=== PATIENT | female | born 1995 | race Caucasian/White ===

== ENCOUNTER 2019-08-26 05:15 | Outpatient (CLI) | payer OTHER, SELFPAY ==
[2019-08-26 06:01] VITALS: BMI 36.6
--- NOTE | 2019-08-26 09:01 | OB.TRI.NOTE ---
History of Present Illness Date of Service: 08/26/19 Was patient seen by the physician?: No Reason For Visit: RULE OUT LABOR Date of Service: 08/26/19 Final PRANEETH: 09/08/19 Gestational age: 38 Weeks and 1 Days Allergies No Known Allergies Allergy (Verified 08/26/19 06:02) Physical Exam Cervix Dilation (cm): 4 NST - FHR Rate Baby A Baseline: 130 Variability:: Moderate Accelerations:: 15 x 15 Decelerations:: None NST Reactive:: Yes FHR Category:: Category I Uterine Activity:: q2-4 Impression/Plan 24yo @ 38.1 wks- Early labor Cervix unchanged- dc home nst reactive
== END 2019-08-26 07:45 | disposition home or self-care (01) ==
LOC: WPOUT 05:52 → WP 05:53
PROVIDERS: Visit Provider Obstetrics & Gynecology
DX: O60.03 Preterm labor without delivery, third trimester (principal); Z3A.38 38 weeks gestation of pregnancy
CPT/HCPCS: 59025; 59050; 99218; G0378

== ENCOUNTER 2019-08-26 11:50 | Inpatient (IN) | payer OTHER, SELFPAY ==
[2019-08-26 06:01] VITALS: BMI 36.6
[2019-08-26 12:38] VITALS: BMI 36.8
[2019-08-26 12:41] LABS: Absolute Lymphocyte Count 0.76 X10^3/uL (0.83-4.51); Absolute Neutrophil Count 15.2 X10^3/uL (2.0-7.7); Basophil# 0.03 X10^3/uL; Basophil% 0.2 % (0-1); Hematocrit 40.4 % (37-47); Hemoglobin 13.9 g/dL (12.0-15.0); Lymphocyte # 0.76 X10^3/ul (4.0); Lymphocyte % 4.6 % (19-41); Mean Corp Hgb Conc 34.4 g/dL (32-36); Mean Corpuscular Hgb 32.1 pg (27.0-32.0); Mean Corpuscular Volume 93.3 fL (81-99); Mean Platelet Vol. 10.3 fl (6.2-12.0); Monocyte# 0.39 X10^3/uL; Monocyte% 2.4 % (0-10); NRBC Flagged by Analyzer 0 % (0-5); Neutrophil % 92.3 % (47-70); Platelet Count 162 K/mm3 (150-450); RBC Distribution Width CV 12.7 % (11.6-14.6); RBC Distribution Width SD 43.2 fl (35.1-43.9); Red Blood Count 4.33 M/mm3 (4.2-5.4); White Blood Count 16.5 K/mm3 (4.4-11.0)
[2019-08-26] MEDS: Lactated Ringers 1,000 ML 50 ML IV (12:42)
[2019-08-26] MEDS: Lactated Ringers 500 ML 999 ML IV (12:42)
--- NOTE | 2019-08-26 14:06 | PCM.HP.OB ---
History Date of Admission: 08/26/19 Final PRANEETH: 09/08/19 Final PRANEETH Source: US <20 weeks Gestational age: 38 Weeks and 1 Days History of this : This is a 24 year-old, , at 38 weeks gestational age presents in active labor. Patient at time of admission was found to be 5/80/-2 with bulging membranes. Allergies No Known Allergies Allergy (Verified 08/26/19 06:02) Home Medications: Home Medications Vits [Prenatabs FA] 1 tab PO DAILY 08/26/19 Smoking Status: Never smoker Alcohol: None Number of Fetus(es): 1 History Past Pregnancies: Past Pregnancies Delivery Date Name GA/Weeks Outcome Route Weight Gender Labor Length Anesthesia Delivery Location Provider FOB Expected Infant Delivery Method: Spontaneous Vaginal Review of Systems Eyes: Denies: Blurred vision, Vision Change HEENT: Denies: Head Aches Cardiovascular: Denies: Chest Pain Gastrointestinal: Reports: Abdominal Pain - from ctx pain Physical Exam General: Alert, Oriented x3 Abdomen: Soft, Non Tender, Gravid Neurological: Cranial nerves II-XII grossly intact 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
--- NOTE | 2019-08-26 17:06 | PCM.PN.BLA ---
Progress Note called regarding FHR tracing- Deep Variables down to 65-70BPM. pt placed on Hands and Knees with resolution of variables- FHR now 150s Mod getachew. Will Continue to monitor- VE while in Hands and knees position- was approx 8cm. continue to monitor will start amnioinfusion if needed.
[2019-08-26] MEDS: Lactated Ringers 1,000 ML 200 ML IV (18:14)
[2019-08-26] MEDS: Oxytocin 30 units/NS 500 ml 30 UNITS/500 ML IV.SOLN 334 UNITS IV (19:35)
--- NOTE | 2019-08-26 19:57 | PCM.OPRPT ---
Vaginal Delivery Maternal Presentation: Active Labor Amniotic Membrane Rupture Type: Artificial Amniotic Fluid Description: Clear Final PRANEETH: 09/08/19 Final PRANEETH Source: US <20 weeks Gestational age: 38 Weeks and 1 Days Date of Procedure: 08/26/19 Pre-Operative Diagnosis: term gestation, active labor Post-Operative Diagnosis: live male Surgery/ Procedure Performed: Spontaneous Vaginal Delivery Type of Anesthesia: Epidural Description of Procedure: of live male born without complication. fetus with Prolonged deceleration to 60bpm during maternal pushing efforts- decision for RML episiotomy to expedite delivery. Infant placed on maternal chest and delayed cord clamping performed. Presentation: Vertex Placental Delivery Description: Spontaneous Placenta Disposition: [facility] Cord Vessel Description: 3 Vessels Cord Entanglement: None Drain: Molina to straight drain Estimated Blood Loss: 300 Infant A gender: Male (1 minute): 8 (5 minute): 9 Episiotomy Description: Right Mediolateral - repaired with 2-0 vicryl and 3-0 rapide, 2nd degree Laceration: Vaginal Extension/lac - repaired with 3-0 rapide, 1st degree Medications given after delivery: IV Pitocin Complications: None
[2019-08-26] MEDS: 0.9% Saline Lock 10 ML Syringe IV (22:14)
[2019-08-26 23:18] VITALS: BP 111/57; PULSE 97; RESP 18; TEMP 37.1
[2019-08-27 04:15] VITALS: BP 116/68; PULSE 89; RESP 16; TEMP 36.2
[2019-08-27 07:25] VITALS: BP 132/78; PULSE 82; RESP 16; TEMP 36.7; O2SAT 99
[2019-08-27] MEDS: Ibuprofen 600 MG Tablet PO ×3 (07:26→21:44)
--- NOTE | 2019-08-27 08:48 | PCM.PN.OB ---
Subjective: She is seen at bedside, doing well. Patient reports good pain control. Lochia is mild. Voiding without difficulty. Breast-feeding going well. - Physical Exam General: Alert, Oriented x3 Abdomen: Soft, Non Tender, Non-Distended, - - fundus firm Extremities: No Calf Tenderness Vital Signs Temp Pulse Resp BP Pulse Ox 98.1 F 82 16 132/78 H 99 08/27/19 07:25 08/27/19 07:25 08/27/19 07:25 08/27/19 07:25 08/27/19 07:25 Oxygen Delivery Method Room Air Weight: 94.347 kg Body Mass Index (BMI) 36.8 Intake and Output for Last 24 Hours 08/25/19 08/26/19 08/27/19 23:59 23:59 23:59 Intake Total 3563.76 / 3563.76 Output Total 1900 / 1900 900 / 900 Balance 1663.76 / 1663.76 -900 / -900 Laboratory Tests Past 24 Hrs 08/26/19 08/26/19 12:10 12:10 WBC 16.5 H RBC 4.33 Hgb 13.9 Hct 40.4 MCV 93.3 MCH 32.1 H MCHC 34.4 RDW Std Deviation 43.2 RDW Coeff of Lyssa 12.7 Plt Count 162 MPV 10.3 Immature Gran % (Auto) 0.500 Neut % (Auto) 92.3 H Lymph % (Auto) 4.6 L [place] % (Auto) 2.4 Eos % (Auto) 0.0 Baso % (Auto) 0.2 Absolute Neuts (auto) 15.2 H Absolute Lymphs (auto) 0.76 L Nucleated RBC % 0 Blood Type O POSITIVE Antibody Screen NEGATIVE Medical Necessity - Tobacco Use Smoking Status: Never smoker Assessment/Plan PPD#1, doing well routine care pain mgmt
[2019-08-27 12:06] VITALS: BP 114/74; PULSE 87; TEMP 36.1
[2019-08-27 15:32] VITALS: BP 121/69; PULSE 87; TEMP 36.2
[2019-08-27 19:45] VITALS: BP 120/63; PULSE 90; RESP 16; TEMP 36.5; O2SAT 97
[2019-08-27] MEDS: Senna/Docusate Sodium 1 Tablet PO (20:07)
[2019-08-28 01:32] VITALS: BP 117/54; PULSE 85; RESP 16; TEMP 36.3; O2SAT 96
[2019-08-28] MEDS: Ibuprofen 600 MG Tablet PO (05:52)
[2019-08-28] MEDS: Senna/Docusate Sodium 1 Tablet PO (08:41)
[2019-08-28 08:45] VITALS: BP 122/71; PULSE 80; RESP 20; TEMP 36.5; O2SAT 97
--- NOTE | 2019-08-28 08:50 | PCM.PN.OB ---
Subjective: Doing well per patient and nursing staff. Ambulating and taking PO without difficulty. Voiding and passing flatus. Denies chest pain, Shortness of breath, increased vaginal bleeding/clots, or leg pain. Pain controlled. without difficulty. Planning D/C home today. - Physical Exam General: Alert, Cooperative HEENT: Atraumatic, Normocephalic Neck: Trachea Midline Lungs: Clear to auscultation, Normal air movement Cardiovascular: Regular rate, Regular Rhythm, No murmurs Abdomen: Bowel Sounds Present, - - Fundus firm 2 below U Extremities: No edema Psych/Mental Status: Normal Affect, Appropriate Vital Signs Temp Pulse Resp BP Pulse Ox 97.4 F L 85 16 117/54 L 96 08/28/19 01:32 08/28/19 01:32 08/28/19 01:32 08/28/19 01:32 08/28/19 01:32 Oxygen Delivery Method Room Air Weight: 208 lb Body Mass Index (BMI) 36.8 Intake and Output for Last 24 Hours 08/26/19 08/27/19 08/28/19 23:59 23:59 23:59 Intake Total 3563.76 / 3563.76 Output Total 1900 / 1900 900 / 900 Balance 1663.76 / 1663.76 -900 / -900 Medical Necessity - Tobacco Use Smoking Status: Never smoker Assessment/Plan A:PPD #2 P: 1) Routine discharge instructions reviewed. 2) D/C home today. Follow up in 2 weeks and 6 weeks.
--- NOTE | 2019-08-28 08:55 | DCINST_ITS ---
Discharge Diet: No Restrictions Discharge Activity: Return to Normal Activity May resume sexual activity in: 4-6 weeks Weight Bearing Status: Full weight bearing Additional Activity Instructions:: Nothing in the vagina for 4-6 weeks. You may return to work/school in 6 weeks. Call your doctor if your incision/area has: Continuous Slow Oozing, Sudden Increased Bleeding, Increased Pain/ Swelling, Increased Redness, Foul Smelling Discharge Call your doctor if you observe: Coldness, Increased Pain, Inability to urinate, Inability to have a bowel movement, Using more than one pad per hour, Shortness of breath, Chest pain, Increased palpitations (irregular heartbeat), Calf discomfort Additional Instructions: If you experience any of the following, contact your healthcare provider. * Bleeding that soaks a pad every hour for 2 hours * Fever 100.4 or higher * Unrelieved incision or abdominal pain * Swelling, redness, discharge or bleeding from your incision or episiotomy site * Your incision begins to separate * Problems urinating (including inability to urinate or burning while urinating). * Visual changes * Severe headache * Flu-like symptoms * Pain or redness in one of both of your breasts * Pain, warmth, tenderness or swelling in your legs, especially the calf area * Frequent nausea and vomiting * Symptoms of depression or anxiety If you experience any of the following, call 911 or go to the nearest Emergency Room. * Chest pain * Problems breathing * Seizure activity * Partial or complete paralysis of a body part, slurred speech, weakness or drooping of the face, or a sudden inability to walk or hold your balance Allergies/Adverse Reactions: Allergies No Known Allergies Allergy (Verified 08/26/19 06:02) Medications to take at Discharge Vits [Prenatabs FA ] 1 tab PO DAILY 08/26/19 Ibuprofen [Motrin] 600 mg PO Q6H PRN PRN #30 tab 08/28/19 The following prescriptions were given: Ibuprofen [Motrin] 600 mg PO Q6H PRN PRN #30 tab PRN Reason: Pain Score 1-3/10 Transmission Status: Pending to [facility]/pharmacy #[id number] Please Follow Up With: Jana Ashley MD When: Call to make an appointment with your doctor in 2 weeks and 6 weeks. Primary Care Physician: Dusty Barrera [Primary Care Provider] - Test Results: Test results from this visit will be discussed in further detail at your follow- up appointment, if applicable.
== END 2019-08-28 12:00 | disposition home or self-care (01) | DRG 807 ==
PROVIDERS: Admitting Provider Obstetrics & Gynecology; Visit Provider Obstetrics & Gynecology
DX: O76 Abnormality in fetal heart rate and rhythm complicating labor and delivery (principal); Z37.0 Single live birth; O70.0 First degree perineal laceration during delivery; Z3A.38 38 weeks gestation of pregnancy
CPT/HCPCS: 59025; 59050; 85025; 86850; 86900; 86901; 99218; J7120; A4216; G0378

== ENCOUNTER → 2019-11-14 08:34 | Outpatient (CLI) | payer OTHER, SELFPAY | PROVIDERS: Visit Provider Obstetrics & Gynecology | DX: O92.79 Other disorders of lactation (principal); N64.4 Mastodynia | CPT/HCPCS: 96152 ==

== ENCOUNTER → 2019-11-26 15:15 | Outpatient (CLI) | payer OTHER, SELFPAY | PROVIDERS: Referring Provider Obstetrics & Gynecology; Visit Provider Obstetrics & Gynecology | DX: Z39.1 Encounter for care and examination of lactating mother (principal) | CPT/HCPCS: 96152 ==

== ENCOUNTER → 2020-12-23 09:05 | Outpatient (CLI) | payer OTHER, SELFPAY | PROVIDERS: Referring Provider Obstetrics & Gynecology; Visit Provider Obstetrics & Gynecology | DX: Z03.818 Encounter for observation for suspected exposure to other biological agents ruled out (principal) | CPT/HCPCS: 87635; C9803; U0005; U0003 ==

== ENCOUNTER 2020-12-26 07:05 | Inpatient (IN) | payer OTHER, SELFPAY ==
--- NOTE | 2020-12-24 18:16 | PCM.HP.OB ---
History Date of Admission: 12/26/20 Final PRANEETH: 01/01/21 Final PRANEETH Source: US <20 weeks Gestational age: 39 Weeks and 1 Days History of this : This is a 25 year-old, @ 39.1 weeks- here for scheduled IOL for moderate idiopathic polyhydramnios. Medical History: Medical History (Last Updated 12/24/20 @ 18:[address] Jana Ashley MD) Polyhydramnios affecting in third trimester O40.3XX0 Allergies No Known Allergies Allergy (Verified 08/26/19 06:02) Home Medications: Home Medications Vits [Prenatabs FA ] 1 tab PO DAILY 08/26/19 Sertraline HCl [Zoloft] 50 mg PO DAILY 12/26/20 Smoking Status: Never smoker Alcohol: None Number of Fetus(es): 1 History Past Pregnancies: Past Pregnancies Delivery Date Name GA/ Weeks Outcome Route Wt Sex Labor Length Anesthesia Delivery Location Provider FOB Expected Delivery Method: Spontaneous Vaginal Describe any other labor & delivery plans:: Labor induction with Pitocin and AROM Physical Exam General: Alert, Oriented x3 Abdomen: Soft, Non Tender, - - gravid Neurological: Cranial nerves II-XII grossly intact [employer] MECH[employer]IC: Normal external genitalia Estimated gestational size: Appropriate for gestational size Presentation: Cephalic Cervix Dilation (cm): 4 - VERTEX on Ultrasound today Station: -3 Effacement (%): 60 Assessment/Plan This is a 25 year-old, @ 39.1 weeks here for iOL due to moderate polyhydramnios 1) admit to L&D 2) monitor fhr/toco 3) anticipate 4) pit/arom 5) epidural for pain mgmt 6) vertex confirmed on ultrasound
[2020-12-26] VITALS (44 sets, daily range): BP systolic 103–186; BP diastolic 40–105; PULSE 82–143; RESP 16; TEMP 36.2–37.2; O2SAT 82–100; BMI 40.4
[2020-12-26] MEDS: Lactated Ringers 1,000 ML 50 ML IV (07:53)
[2020-12-26 08:12] LABS: Absolute Lymphocyte Count 1.81 X10^3/uL (0.83-4.51); Absolute Neutrophil Count 8.4 X10^3/uL (2.0-7.7); Basophil# 0.03 X10^3/uL; Basophil% 0.3 % (0-1); Eosinophil# 0.07 X10^3/uL; Eosinophils% 0.6 % (0-5); Hematocrit 39.7 % (37-47); Hemoglobin 13.6 g/dL (12.0-15.0); Lymphocyte # 1.81 X10^3/ul (4.0); Lymphocyte % 16.5 % (19-41); Mean Corp Hgb Conc 34.3 g/dL (32-36); Mean Corpuscular Hgb 31.3 pg (27.0-32.0); Mean Corpuscular Volume 91.3 fL (81-99); Mean Platelet Vol. 10.2 fl (6.2-12.0); Monocyte# 0.61 X10^3/uL; Monocyte% 5.5 % (0-10); NRBC Flagged by Analyzer 0 % (0-5); Neutrophil % 76.4 % (47-70); Platelet Count 186 K/mm3 (150-450); RBC Distribution Width CV 13.4 % (11.6-14.6); Red Blood Count 4.35 M/mm3 (4.2-5.4)
[2020-12-26] MEDS: Oxytocin 30 units/NS 500 ml 30 UNITS/500 ML IV.SOLN IV (08:35)
[2020-12-26] MEDS: Lactated Ringers 500 ML 999 ML IV (11:53)
[2020-12-26] MEDS: fentaNYL-bupivacaine (epidural) 100 ML BAG EPIDURAL (12:53)
[2020-12-26] MEDS: Oxytocin 30 units/NS 500 ml 30 UNITS/500 ML IV.SOLN 334 UNITS IV (15:44)
--- NOTE | 2020-12-26 15:51 | PCM.OPRPT ---
Vaginal Delivery Maternal Presentation: Medically Indicated Induction Method of Induction: Pitocin, Amniotomy Medical Reason for Induction: - - polyhydramnios Amniotic Membrane Rupture Type: Artificial Amniotic Fluid Description: Clear Final PRANEETH: 01/01/21 Final PRANEETH Source: US <20 weeks Gestational age: 39 Weeks and 1 Days Date of Procedure: 12/26/20 - 1540 Pre-Operative Diagnosis: term gestation, moderate polyhydramnios Post-Operative Diagnosis: same, live male infant Surgery/ Procedure Performed: Spontaneous Vaginal Delivery Type of Anesthesia: Epidural Description of Procedure: of live male born without complications. head delivered with good maternal pushing efforts shoulders delivered with gentle downward traction followed by the rest of the 's body. Center was then delivered in tact without complication. The was on the mother's chest for immediate skin the skin. Delayed cord clamping performed. First-degree perineal laceration repaired with a 2-0 Vicryl. Presentation: Vertex Placental Delivery Description: Spontaneous Placenta Disposition: [facility] Cord Vessel Description: 3 Vessels Cord Entanglement: None Drain: Molina to straight drain Estimated Blood Loss: 150 Infant A gender: Male (1 minute): 8 (5 minute): 9 Episiotomy Description: None Laceration: Perineal Extension/lac, 1st degree - repaired with 2-0 vicryl Medications given after delivery: IV Pitocin Complications: None
[2020-12-26] MEDS: Methylergonovine 0.2 MG/ML Ampul IM (16:57)
[2020-12-26] MEDS: 0.9% Saline Lock 10 ML Syringe IV (18:34)
[2020-12-27 04:24] VITALS: BP 117/72; PULSE 89; RESP 16; TEMP 36.3
[2020-12-27] MEDS: Ibuprofen 600 MG Tablet PO ×3 (04:27→21:50)
[2020-12-27 08:00] VITALS: BP 131/71; PULSE 68; RESP 16; TEMP 36.8
--- NOTE | 2020-12-27 09:09 | PCM.PN.OB ---
Subjective: No complaints - Physical Exam Vitals/I&O's: Vital Signs Temp Pulse Resp BP Pulse Ox 97.4 F L 89 16 117/72 96 12/27/20 04:24 12/27/20 04:24 12/27/20 04:24 12/27/20 04:24 12/26/20 19:13 Oxygen Delivery Method Room Air Weight: 224 lb 9.6 oz Body Mass Index (BMI) 40.4 Intake and Output for Last 24 Hours 12/25/20 12/26/20 12/27/20 23:59 23:59 23:59 Intake Total 2672.57 / 2672.57 Output Total 1600 / 1600 Balance 1072.57 / 1072.57 General: Alert, Oriented x3 Abdomen: Soft, Non Tender, Non-Distended - ff mid & below umb Extremities: No Calf Tenderness Laboratory Results 12/26/20 07:53: Blood Type O POSITIVE, Antibody Screen NEGATIVE Current Medications Acetaminophen (Acetaminophen 500 Mg Tablet) 1,000 mg PO Q8H PRN PRN PRN Reason: Pain Score 1-3 Bisacodyl (Bisacodyl 10 Mg Suppository) 10 mg RECTAL UD PRN PRN Reason: If no BM Dibucaine (Dibucaine 30 Gm Tube) 1 applic TOPICAL TID PRN PRN; Protocol PRN Reason: Discomfort Hydrocortisone (Hydrocortisone 2.5% Crm) 1 applic TOPICAL TID PRN PRN; Protocol PRN Reason: Discomfort Ibuprofen (Ibuprofen 600 Mg Tablet) 600 mg PO Q6H PRN PRN PRN Reason: Pain Score 1-3 Last Admin: 12/27/20 04:27 Dose: 600 mg Documented by: Methylergonovine Maleate (Methylergonovine 0.2 Mg/Ml Ampul) 0.2 mg IM X1 PRN PRN Reason: Excess bleeding/uterine atony Last Admin: 12/26/20 16:57 Dose: 0.2 mg Documented by: Ondansetron HCl (Ondansetron 4 Mg/2 Ml Vial) 4 mg IV Q4H PRN PRN PRN Reason: Nausea Oxycodone HCl (Oxycodone 5 Mg Tablet) 5 - 10 mg PO Q4H PRN PRN PRN Reason: Pain Score 4-10 Senna/Docusate Sodium (Senna/Docusate Sodium 1 Tablet) 1 - 2 tablet PO DAILY PRN PRN PRN Reason: Constipation Sertraline HCl (Sertraline 50 Mg Tablet) 50 mg PO DAILY PRASHANT Simethicone (Simethicone 80 Mg Tablet) 80 mg PO PCHS PRN PRN Reason: Indigestion/Stomach pain Sodium Chloride (0.9% Saline Lock 10 Ml Syringe) 5 - 15 ml IV UD PRN PRN Reason: SALINE FLUSH Last Admin: 12/26/20 18:34 Dose: 10 ml Documented by: Medical Necessity - Tobacco Use Smoking Status: Never smoker Assessment/Plan PPD#1 Routine care Possible d/c home later today
[2020-12-27 13:48] VITALS: BP 118/62; PULSE 76; RESP 16; TEMP 36.7
[2020-12-27] MEDS: Senna/Docusate Sodium 1 Tablet PO (13:58)
--- NOTE | 2020-12-27 14:50 | CASEMGMT ---
Social Work note: NATALIA met with patient and father of the baby. Introduced self and role at [facility] and reason for consult. Patient was sitting up in bed holding baby. Father of baby was in room doing various things. Patient was very upbeat and cheery. She was more than willing to talk with Social Work. Patient shared with Social Work that with her last baby she had a hard time with breast feeding. She feels this consumed her and got her so upset that she feels that was a big part of the problem. She is going to bottle feed this baby and is happy and confident with this decision. Her OB started her on Zoloft part way through this . She feels this has helped tremendously as does her . She denies any concerns with going home at discharge. Father of the baby took a month off to be at home with patient and babies. NATALIA let them know NATAILA Orr will bring resources by before she leaves. NATALIA updated RN. Plan: d/c home with baby. Jaylin JARA MSW
[2020-12-27 16:30] VITALS: BP 116/69; PULSE 88; RESP 16; TEMP 36.8
[2020-12-27 19:59] VITALS: BP 123/79; PULSE 96; RESP 16; TEMP 36.4
[2020-12-28 01:41] VITALS: BP 119/86; PULSE 92; RESP 16; TEMP 36.3
[2020-12-28] MEDS: Ibuprofen 600 MG Tablet PO (04:32)
[2020-12-28 08:30] VITALS: BP 100/61; PULSE 83; RESP 18; TEMP 36.7; O2SAT 97
--- NOTE | 2020-12-28 11:10 | DCINST_ITS ---
Discharge Diet: No Restrictions Discharge Activity: May Drive, May Shower May resume sexual activity in: 6 weeks Additional Instructions: If you experience any of the following, contact your healthcare provider. * Bleeding that soaks a pad every hour for 2 hours * Fever 100.4 or higher * Unrelieved incision or abdominal pain * Swelling, redness, discharge or bleeding from your incision or episiotomy site * Your incision begins to separate * Problems urinating (including inability to urinate or burning while urinating). * Visual changes * Severe headache * Flu-like symptoms * Pain or redness in one of both of your breasts * Pain, warmth, tenderness or swelling in your legs, especially the calf area * Frequent nausea and vomiting * Symptoms of depression or anxiety If you experience any of the following, call 911 or go to the nearest Emergency Room. * Chest pain * Problems breathing * Seizure activity * Partial or complete paralysis of a body part, slurred speech, weakness or drooping of the face, or a sudden inability to walk or hold your balance Allergies/Adverse Reactions: Allergies No Known Allergies Allergy (Verified 12/26/20 07:31) Medications to take at Discharge Vits [Prenatabs FA ] 1 tab PO DAILY 08/26/19 Sertraline HCl [Zoloft] 50 mg PO DAILY 12/26/20 Acetaminophen [Tylenol] 1,000 mg PO Q8H PRN PRN tab 12/27/20 Ibuprofen [Motrin] 600 mg PO Q6H PRN PRN tab 12/27/20 Primary Care Physician: Philip Barrera MD [Primary Care Provider] - Test Results: Test results from this visit will be discussed in further detail at your follow- up appointment, if applicable.
--- NOTE | 2020-12-28 11:10 | PCM.DCVAG ---
Discharge Diet: No Restrictions Discharge Activity: May Drive, May Shower May resume sexual activity in: 6 weeks Additional Instructions: If you experience any of the following, contact your healthcare provider. Bleeding that soaks a pad every hour for 2 hours Fever 100.4 or higher Unrelieved incision or abdominal pain Swelling, redness, discharge or bleeding from your incision or episiotomy site Your incision begins to separate Problems urinating (including inability to urinate or burning while urinating). Visual changes Severe headache Flu-like symptoms Pain or redness in one of both of your breasts Pain, warmth, tenderness or swelling in your legs, especially the calf area Frequent nausea and vomiting Symptoms of depression or anxiety If you experience any of the following, call 911 or go to the nearest Emergency Room. Chest pain Problems breathing Seizure activity Partial or complete paralysis of a body part, slurred speech, weakness or drooping of the face, or a sudden inability to walk or hold your balance Allergies/Adverse Reactions: Allergies No Known Allergies Allergy (Verified 12/26/20 07:31) Medications to take at Discharge Vits [Prenatabs FA ] 1 tab PO DAILY 08/26/19 Sertraline HCl [Zoloft] 50 mg PO DAILY 12/26/20 Acetaminophen [Tylenol] 1,000 mg PO Q8H PRN PRN tab 12/27/20 Ibuprofen [Motrin] 600 mg PO Q6H PRN PRN tab 12/27/20 Primary Care Physician: Philip Barrera MD [Primary Care Provider] - Test Results: Test results from this visit will be discussed in further detail at your follow-up appointment, if applicable.
--- NOTE | 2020-12-28 11:11 | PCM.PN.OB ---
Subjective: No complaints - Physical Exam Vitals/I&O's: Vital Signs Temp Pulse Resp BP Pulse Ox 98.1 F 83 18 100/61 97 12/28/20 08:30 12/28/20 08:30 12/28/20 08:30 12/28/20 08:30 12/28/20 08:30 Oxygen Delivery Method Room Air Weight: 224 lb 9.6 oz Body Mass Index (BMI) 40.4 Intake and Output for Last 24 Hours 12/26/20 12/27/20 12/28/20 23:59 23:59 23:59 Intake Total 2672.57 / 2672.57 Output Total 1600 / 1600 Balance 1072.57 / 1072.57 General: Alert, Oriented x3 Abdomen: Soft, Non Tender, Non-Distended - ff mid & below umb Extremities: No Calf Tenderness Current Medications Acetaminophen (Acetaminophen 500 Mg Tablet) 1,000 mg PO Q8H PRN PRN PRN Reason: Pain Score 1-3 Bisacodyl (Bisacodyl 10 Mg Suppository) 10 mg RECTAL UD PRN PRN Reason: If no BM Dibucaine (Dibucaine 30 Gm Tube) 1 applic TOPICAL TID PRN PRN; Protocol PRN Reason: Discomfort Hydrocortisone (Hydrocortisone 2.5% Crm) 1 applic TOPICAL TID PRN PRN; Protocol PRN Reason: Discomfort Ibuprofen (Ibuprofen 600 Mg Tablet) 600 mg PO Q6H PRN PRN PRN Reason: Pain Score 1-3 Last Admin: 12/28/20 04:32 Dose: 600 mg Documented by: Methylergonovine Maleate (Methylergonovine 0.2 Mg/Ml Ampul) 0.2 mg IM X1 PRN PRN Reason: Excess bleeding/uterine atony Last Admin: 12/26/20 16:57 Dose: 0.2 mg Documented by: Ondansetron HCl (Ondansetron 4 Mg/2 Ml Vial) 4 mg IV Q4H PRN PRN PRN Reason: Nausea Oxycodone HCl (Oxycodone 5 Mg Tablet) 5 - 10 mg PO Q4H PRN PRN PRN Reason: Pain Score 4-10 Senna/Docusate Sodium (Senna/Docusate Sodium 1 Tablet) 1 - 2 tablet PO DAILY PRN PRN PRN Reason: Constipation Last Admin: 12/27/20 13:58 Dose: 2 tablet Documented by: Sertraline HCl (Sertraline 50 Mg Tablet) 50 mg PO DAILY PRASHANT Last Admin: 12/28/20 10:18 Dose: Not Given Documented by: Simethicone (Simethicone 80 Mg Tablet) 80 mg PO PCHS PRN PRN Reason: Indigestion/Stomach pain Sodium Chloride (0.9% Saline Lock 10 Ml Syringe) 5 - 15 ml IV UD PRN PRN Reason: SALINE FLUSH Last Admin: 12/26/20 18:34 Dose: 10 ml Documented by: Medical Necessity - Tobacco Use Smoking Status: Never smoker Assessment/Plan PPD#2 D/c home
== END 2020-12-28 11:40 | disposition home or self-care (01) | DRG 807 ==
PROVIDERS: Admitting Provider Obstetrics & Gynecology; Visit Provider Obstetrics & Gynecology
DX: O40.3XX0 Polyhydramnios, third trimester, not applicable or unspecified (principal); Z37.0 Single live birth; Z3A.39 39 weeks gestation of pregnancy; O70.0 First degree perineal laceration during delivery
CPT/HCPCS: 59025; 59050; 85025; 86850; 86900; 86901; 99218; J7120; A4216; G0378

== ENCOUNTER 2023-05-07 06:48 | Inpatient (IN) | payer BC, SELFPAY ==
[2023-05-07] VITALS (73 sets, daily range): BP systolic 88–183; BP diastolic 50–105; PULSE 32–105; RESP 16; TEMP 36.1–37; O2SAT 80–100; BMI 41.8
[2023-05-07] MEDS: Lactated Ringers 1,000 ML 50 ML IV (07:00)
[2023-05-07 07:10] LABS: Absolute Lymphocyte Count 1.35 X10^3/uL (0.83-4.51); Absolute Neutrophil Count 7.7 X10^3/uL (2.0-7.7); Basophil# 0.04 X10^3/uL; Basophil% 0.4 % (0-1); Eosinophil# 0.07 X10^3/uL; Eosinophils% 0.7 % (0-5); Hematocrit 39.9 % (37-47); Hemoglobin 13.2 g/dL (12.0-15.0); Lymphocyte # 1.35 X10^3/ul (0.83-4.51); Lymphocyte % 13.7 % (19-41); Mean Corp Hgb Conc 33.1 g/dL (32-36); Mean Corpuscular Hgb 30.5 pg (27.0-32.0); Mean Corpuscular Volume 92.1 fL (81-99); Mean Platelet Vol. 11.6 fl (6.2-12.0); Monocyte# 0.59 X10^3/uL; NRBC Flagged by Analyzer 0 % (0-5); Neutrophil # 7.72 X10^3/uL (2.7-7.7); Neutrophil % 78.7 % (47-70); Platelet Count 142 K/mm3 (150-450); RBC Distribution Width CV 13.4 % (11.6-14.6); RBC Distribution Width SD 45.5 fl (35.1-43.9); Red Blood Count 4.33 M/mm3 (4.2-5.4); White Blood Count 9.8 K/mm3 (4.4-11.0)
[2023-05-07] MEDS: Labetalol (Prefilled) 20 MG/4 ML IV (07:10)
--- NOTE | 2023-05-07 07:13 | HP.PCM.OB_ITS ---
HPI - General General Date of Admission: 05/07/23 Date of Service: 05/07/23 HPI Narrative YARELIS ZUNIGA, is a 28 F @ 38.6 weeks who presents c/o CTX, found to be 5cm/70/-2 SROM on exam clear fluid, had severe range BPs on exam, asymptomatic- denies CORTEZ, visual change or Epigastric pain. [facility] Medical History (Updated 05/07/23 @ 07:[address] Jana Ashley MD) Polyhydramnios affecting in third trimester Home Medications vits,calcium no.78-iron fumarate-folic acid 29 mg-1 mg tablet 1 tab PO DAILY 08/26/19 [History Last Taken 05/06/23] sertraline 50 mg tablet 50 mg PO DAILY Check with primary doctor 12/26/20 [History Last Taken 12/25/20 21:00] Allergy/AdvReac Type Severity Reaction Status Date / Time No Known Allergies Allergy Verified 05/07/23 06:53 Social History Smoking Status: Never smoker History Elective abortions Hx Para 2 Spontaneous abortions Hx # Term Pregnancies Ectopic pregnancies Hx # Pregnancies Multiple births # of living children NST FHR Rate Baby A Baseline: 135 Variability:: Moderate Accelerations:: 15 x 15 Decelerations:: None NST Reactive:: Yes FHR Category:: Category I Uterine Activity:: q2-3 Vital Signs Vital Signs Vital Signs: 05/07/23 06:23 05/07/23 06:23 05/07/23 06:32 Temperature Temperature Source Temporal Pulse Rate 91 Blood Pressure BP Systolic BP Diastolic Pulse Ox 98 05/07/23 06:32 05/07/23 06:32 05/07/23 06:35 Temperature 97.9 F Temperature Source Pulse Rate Blood Pressure 168/85 H BP Systolic 168 BP Diastolic 85 Pulse Ox 98 05/07/23 06:35 05/07/23 06:56 05/07/23 06:56 Temperature Temperature Source Pulse Rate 83 98 Blood Pressure 171/85 H BP Systolic 171 BP Diastolic 85 Pulse Ox 05/07/23 07:09 05/07/23 07:09 05/07/23 07:11 Temperature Temperature Source Pulse Rate 95 Blood Pressure 183/105 H BP Systolic 183 BP Diastolic 105 Pulse Ox 99 05/07/23 07:11 Temperature Temperature Source Pulse Rate 90 Blood Pressure BP Systolic BP Diastolic Pulse Ox Weight Weight: 107.411 kg Physical Exam Narrative VE: 5/70/-2 during ctx SROM, clear VERTEX Const alert and oriented x3 General Appearance: cooperative HEENT normocephalic GI GI Narrative: Gravid, non tender to palpation. OB / External & Speculum: external exam normal Extremity normal to inspection Skin no rashes or lesions noted Neuro oriented x3 and CN's II-XII intact bilaterally Psych Appearance: grossly normal Labs Labs Labs: Blood Type O POSITIVE Antibody Screen NEGATIVE Hct 39.9 % (37-47) Hgb 13.2 g/dL (12.0-15.0) Syphilis Total Ab Pending Rhogam given: No Assessment & Plan (1) Obesity affecting : (2) Severely increased blood pressure and swelling during : (3) Active labor at term: (4) 38 weeks gestation of : PLAN: Plan Admit to L&D Montior FHR/TOCO Epidural if requested for pain Monitor VS Anticipate magnesium sulfate/labetalol HTN protocol PRE E LABS SENT
[2023-05-07] MEDS: Magnesium Sulfate 4gm/100mL 4 GM/100 ML IV.SOLN. IV (07:20)
[2023-05-07] MEDS: Magnesium Sulfate 4gm/100mL 2 GM/50 ML IV.SOLN. IV (07:20)
[2023-05-07 07:22] LABS: AST(SGOT) 24 U/L (15-37); Alanine Aminotransfer ALT/SGPT 21 U/L (13-56); Creatinine, Serum 0.56 mg/dL (0.55-1.02); EST Glomerular Filtration Rate 136 mL/min (>60); Est Glom Filt Rate - Afr Amer 164 mL/min (>60); Estimated Creatinine Clearance 117.24 ml/min; Uric Acid 5.1 mg/dL (2.6-6.0)
[2023-05-07 07:51] LABS: Syphilis Antibodies Non-reactive
[2023-05-07] MEDS: Magnesium Sulfate 20 GM/500 ML BAG IV ×2 (07:55→16:54)
[2023-05-07] MEDS: Labetalol 100 MG Tablet PO ×2 (09:22→22:31)
[2023-05-07] MEDS: Oxytocin 15 Units/NS 250ml 15 UNITS/250 ML IV.SOLN 2 UNITS IV (09:43)
[2023-05-07 10:42] LABS: Protein, Urine (Random) 14.6 mg/dL (<11.9); Protein:Creat Ratio 192 mg/g CRE (0-200)
--- NOTE | 2023-05-07 11:03 | PCM.PN.BLA ---
Progress Note pt seen at bedside, VE performed: 8cm/80/-2. some variables with good return to baseline and occasional Early deceleration. Continue magnesium sulfate and pitocin at this time
--- NOTE | 2023-05-07 12:02 | EX.PCM.OBRPT ---
Vaginal Delivery Maternal Presentation Maternal Presentation: Active Labor Operative Information Date of Procedure: 05/07/23 Pre-Operative Diagnosis: 38 weeks gestation, active labor, Severe range BP, Obesity in , active labor Post-Operative Diagnosis: same, live male infant Surgery / Procedure Performed: Spontaneous Vaginal Delivery Type of Anesthesia: Epidural Special Medications: magnesium sulfate Drain: Molina to straight drain Estimated Blood Loss: 150 Time of Delivery: 11:50 Findings Description of Procedure: Progressed to fully dilated with good maternal pushing efforts the infant's head was delivered followed by the anterior shoulder with gentle downward traction and the rest the infant's body. The was placed on the mother's chest for immediate skin to skin. Delayed cord clamping was performed. Nursery team was available for delivery. Once the cord was clamped and cut the placenta was delivered without complication and intact spontaneously. Cord blood was first obtained. Uterus was firm. Perineum and vagina intact. Presentation: Vertex Amniotic Membrane Rupture Type: Spontaneous Amniotic Fluid Description: Clear Placental Delivery Description: Spontaneous Placenta Disposition: [facility] Specimen(s) Removed: placenta Cord Vessel Description: 3 Vessels Cord Entanglement: None A Gender: Male (1 minute): 8 (5 minute): 9 Delayed Cord Clamping: Yes Post Vaginal Delivery Medications Given After Delivery: IV Pitocin Episiotomy Description: None Laceration: None Complication Complications: None
[2023-05-07] MEDS: Oxytocin 15 Units/NS 250ml 15 UNITS/250 ML IV.SOLN 83 UNITS IV (12:30)
[2023-05-08] VITALS (29 sets, daily range): BP systolic 100–134; BP diastolic 54–72; PULSE 77–99; RESP 15–16; TEMP 36.1–37; O2SAT 92–99
[2023-05-08] MEDS: Magnesium Sulfate 20 GM/500 ML BAG IV (02:33)
--- NOTE | 2023-05-08 10:07 | CASEMGMT ---
Social Work Labor and Delivery Unit Date/Time of referral: 05/07/23 21:35 Referred by: Dr. Ashley Date/Time of intervention: 05/08/23 9:50am Reason for referral: anx/dep; on Zoloft throughout History obtained from: MOB, FOB Household composition: MOB, FOB, Sons Bobby and Daniel ages 3.5 and 2, and now baby Kix. MOB and FOB have been together 10 years, 5 Medical History: MOB: obesity, increased blood pressure during Baby: Born 05/07/[birth year], 11:15am, 3275g, Apgars 8 and 9 at one and five minutes Educational History: MOB: completed 4 year college degree in education, FOB completed high school Financial Concerns: None. MOB stays home w/children, FOB works part time flexible clerk in construction Infant Supplies: They have all needed supplies including diapers, wipes, car seat, crib, bassinet, clothing, formula, bottles Childcare/Caregivers: MOB, FOB, MOB's parents. Other children are with MOB's parents. Transportation: They have 2 vehicles. Programs/Agencies Involved: None at present. Children's Services/Legal Issues: None at present Behavioral Health Issues: Substance abuse: None for MOB or FOB , No tox screens for MOB or baby on this admission. Mental Health: None for FOB. MOB: History of anxiety and depression. MOB states spoke to doctor and went on Zoloft when with second child. She states it helped and she has stayed on it. MOB explained was having some PPD, had a 1.5 year old and was . MOB has never been in counseling, has not felt the need for it. MOB did not have symptoms of anxiety or depression prior to when it started when . We spoke about how important it is that she asked for help when she needed it. Support Systems: MOB's parents, FOB's parents. Family/Social Stressors: None Depression and Anxiety/Shaken Baby/Safe Sleeping/Resources/Help Me Grow: SW reviewed all resources w/MOB and FOB, and reviewed in particular the warning signs of PPD and anxiety. SW emphasized to MOB if having increased anxiety or depression that she should reach out to doctor, also consider counseling. MOB states understanding. Assessment: MOB and FOB appropriate, answered all questions asked of them. Baby out of room so did not observe any interaction w/baby. Plan: Baby to go home w/FOB and MOB at discharge. No further social service needs anticipated at this time. DANIELLE Grande
--- NOTE | 2023-05-08 10:16 | PCM.PN.OB ---
Subjective Subjective Denies complaints Objective Data Objective Data Vital Signs: Vital Signs Temp Pulse Resp BP Pulse Ox O2 Del Method 97.0 F L 98 16 124/57 H 99 Room Air 05/08/23 09:35 05/08/23 09:39 05/08/23 09:35 05/08/23 09:39 05/08/23 09:38 05/08/23 09:35 Oxygen Delivery Method Room Air Weight: 236 lb Body Mass Index (BMI) 41.8 Intake & Output: Intake and Output for Last 24 Hours 05/06/23 05/07/23 05/08/23 23:59 23:59 23:59 Intake Total 1830.17 / 1830.17 1180.0 / 1180.0 Output Total 3950 / 3950 1900 / 1900 Balance -2119.83 / -2119.83 -720.0 / -720.0 Lab / Micro Data Result Diagrams: 05/07/23 06:50 05/07/23 06:50 Labs: Laboratory Results - last 24 hr 05/07/23 10:00: U Random Total Protein 14.6 H, Urine Creatinine 76.10, Protein/Creatinin Ratio 192 Physical Exam Const alert, oriented x3 and no apparent distress HEENT normocephalic GI soft to palpation, non-tender and non-distended GI Narrative: fundus firm, mid & below umbilicus Extremity normal to inspection and no calf tenderness Assessment & Plan (1) Severe pre-eclampsia affecting childbirth: COMMENT: PPD#1 PLAN: Continue magnesium for 24 hours Continue labetalol discussed that would monitor for another 24-48 hours once magnesium off
[2023-05-08] MEDS: Labetalol 100 MG Tablet PO ×2 (10:31→22:12)
[2023-05-08] MEDS: Sertraline 50 MG Tablet PO (10:31)
[2023-05-08] MEDS: 0.9% Saline Lock 10 ML Syringe IV (11:53)
--- NOTE | 2023-05-08 23:24 | NURSING ---
pt complaint of seeing spots in right eye. blood pressure was 118/58, assessment was negative. Dr. Colin Sandoval on unit, was updated and will go assess pt.
[2023-05-09] VITALS (8 sets, daily range): BP systolic 125–135; BP diastolic 60–75; PULSE 74–80; RESP 16–17; TEMP 35.9–36.4; O2SAT 97–98
--- NOTE | 2023-05-09 07:41 | DCINST_ITS ---
Discharge Instructions Diet Discharge Diet: No restrictions Activity Discharge Activity: May Shower May resume sexual activity in: 6 weeks Weight Bearing Status: Weight bearing as tolerated Dressing / Incision Call your doctor if you observe: Fever of 101 or Higher, Coldness, Increased Pain, Change in Color, Inability to urinate, Inability to have a bowel movement, Using more than 1 pad per hour, Shortness of breath, Dizziness, Fainting spells, Chest pain, Increased palpitations (irregular heartbeat), Calf discomfort and Uncontrolled pain Cleanse incision/area with: Soap & Water Follow Up Care Please Follow Up With: Colin Sandoval MD When: Follow up in 1 day and 6 weeks for visits. Test Results: Test results from this visit will be discussed in further detail at your follow- up appointment, if applicable. Discharge Plan Admission Admit Date/Time: 05/07/23 06:48 Primary Reason for Your Visit: Vaginal delivery Attending Provider: Jana Ashley Primary Care Provider: Care Physician,No Primary Discharge Orders/Prescriptions Prescriptions: New acetaminophen 500 mg Tablet 1,000 mg PO Q6H PRN PRN (Reason: Pain 1-10 Or Fever) Qty: 0 0RF ibuprofen 600 mg Tablet 600 mg PO Q6H PRN PRN (Reason: Pain Score 1-3) Qty: 0 0RF labetalol 100 mg Tablet 100 mg PO BID Qty: 60 0RF Continued vit,[id number] 1 TABLET tablet 1 tab PO DAILY sertraline 50 MG tablet 50 mg PO DAILY Referrals / Follow Up: Care Physician,No Primary [Primary Care Provider] - Disposition Disposition (needs filled in before D/C Order can be placed): Home, Self Care
--- NOTE | 2023-05-09 07:43 | PCM.PN.OB ---
Subjective Subjective Denies complaints Objective Data Objective Data Vital Signs: Vital Signs Temp Pulse Resp BP Pulse Ox O2 Del Method 97.6 F L 74 17 125/61 H 97 Room Air 05/09/23 01:16 05/09/23 07:43 05/09/23 01:16 05/09/23 07:43 05/09/23 01:16 05/09/23 01:16 Oxygen Delivery Method Room Air Weight: 236 lb Body Mass Index (BMI) 41.8 Intake & Output: Intake and Output for Last 24 Hours 05/07/23 05/08/23 05/09/23 23:59 23:59 23:59 Intake Total 1830.17 / 1830.17 1549.17 / 1549.17 Output Total 3950 / 3950 2049 / 2049 Balance -2119.83 / -2119.83 -500.83 / -500.83 Lab / Micro Data Result Diagrams: 05/07/23 06:50 05/07/23 06:50 Physical Exam Const alert, oriented x3 and no apparent distress HEENT normocephalic GI soft to palpation, non-tender and non-distended GI Narrative: fundus firm, mid & below umbilicus Extremity normal to inspection and no calf tenderness Assessment & Plan (1) Severe pre-eclampsia affecting childbirth: COMMENT: PPD#2 PLAN: Continue labetalol. S/p magnesium. Patient strongly desires discharge to home later today if possible. If BP's remain normal plan for discharge and then patient will follow up tomorrow in office for BP check.
[2023-05-09] MEDS: Ibuprofen 600 MG Tablet PO (09:53)
[2023-05-09] MEDS: Sertraline 50 MG Tablet PO (09:53)
[2023-05-09] MEDS: Labetalol 100 MG Tablet PO (09:53)
== END 2023-05-09 13:00 | disposition home or self-care (01) | DRG 807 ==
LOC: WPOUT 06:51 → WP 06:51
PROVIDERS: Admitting Provider Obstetrics & Gynecology; Referring Provider Obstetrics & Gynecology; Visit Provider Obstetrics & Gynecology
DX: O76 Abnormality in fetal heart rate and rhythm complicating labor and delivery (principal); Z37.0 Single live birth; O14.14 Severe pre-eclampsia complicating childbirth; O42.92 Full-term premature rupture of membranes, unspecified as to length of time between rupture and onset of labor; O99.214 Obesity complicating childbirth; Z3A.38 38 weeks gestation of pregnancy; Z87.59 Personal history of other complications of pregnancy, childbirth and the puerperium
CPT/HCPCS: 59025; 59050; 82565; 82570; 84156; 84450; 84460; 84550; 85025; 86780; 86850; 86900; 86901; 99221; J7120; A4216; G0378